=== PATIENT | female | born 1995 | race African-American/Black ===

== ENCOUNTER 2019-03-16 09:42 | Emergency (ER) | payer OTHER ==
[~2019-03-16] VITALS: Ht 162.6 cm; Wt 45.4 kg
[2019-03-16 09:47] VITALS: BP 113/74
[2019-03-16] MEDS ORDERED: NKM (09:52)
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
--- NOTE | 2019-03-16 10:40 | NUR ---
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
--- NOTE | 2019-03-16 11:31 | Diagnostic Imaging Report ---
EXAM: XR Left Clavicle Complete, 2 or More Views CLINICAL HISTORY: PAIN TECHNIQUE: Frontal and lordotic views of the left clavicle. COMPARISON: None FINDINGS: Bones/joints: No displaced fracture or dislocation identified. Joint space is maintained. No bony lesion. Soft tissues: Normal. IMPRESSION: No displaced fracture or dislocation identified.
--- NOTE | 2019-03-16 11:32 | Diagnostic Imaging Report ---
EXAM: XR Chest, 2 Views CLINICAL HISTORY: PAIN TECHNIQUE: Frontal and lateral views of the chest. COMPARISON: None FINDINGS: Hardware: None. Lungs/pleura: Low lung volumes with probable crowding of bronchovascular markings. No focal consolidation. No pleural effusion or pneumothorax. Heart/mediastinum: Normal. No cardiomegaly. Soft tissues: Unremarkable. Bones: No acute fracture. Upper abdomen: Normal. IMPRESSION: No acute disease identified.
--- NOTE | 2019-03-16 11:33 | Diagnostic Imaging Report ---
EXAM: XR Left Shoulder Complete, 2 or More Views CLINICAL HISTORY: PAIN TECHNIQUE: Two or more views of the left shoulder. COMPARISON: None FINDINGS: Bones/joints: No displaced fracture or dislocation identified. Joint space is maintained. No bony lesion. Soft tissues: Normal. IMPRESSION: No displaced fracture or dislocation identified.
[2019-03-16 11:48] VITALS: BP 115/78
--- NOTE | 2019-03-16 11:48 | NUR ---
ER DISCHARGE NOTE: Patient is cleared to be discharged per ERMD, pt is aox4, on room air, with stable vital signs. pt was given dc and prescription instructions, pt was able to verbalize understanding, pt id band removed . pt is able to ambulate with steady gait. pt took all belongings.
== END 2019-03-16 11:48 | disposition home or self-care (01) ==
LOC: EMR 10:18
DX: M54.2 Cervicalgia (principal); M25.512 Pain in left shoulder; R51 Headache; R07.9 Chest pain, unspecified; V43.52XA Car driver injured in collision with other type car in traffic accident, initial encounter; Y92.410 Unspecified street and highway as the place of occurrence of the external cause
CPT/HCPCS: 71046; 99284